=== PATIENT | male | born 1980 ===

== ENCOUNTER 2017-07-20 14:23 | Emergency (ER) | payer OTHER ==
[2017-07-20 14:29] VITALS: BP 112/73; PULSE 81; RESP 18; TEMP 98.2; O2SAT 98
[2017-07-20] MEDS ORDERED: Tetracaine 0.5% Ophth 2 ML BOTTLE OS ONE (14:53)
[2017-07-20] MEDS ORDERED: Tetracaine 0.5% Ophth (OR ONLY) ONE (15:03)
--- NOTE | 2017-07-20 15:16 | C.PDOC ---
History Of Present Illness 37 y/o male presents to ED with complaints of left eye pain. Patient states he was working under ceiling without protective glasses and felt something in the eye. Patient thinks pieces of ceiling could have went in eye. Patient denies vision changes, dizziness, weakness or any other complaints at this time. Time Seen by Provider: 07/20/17 14:36 Chief Complaint (Nursing): Eye Problem History Per: Patient History/Exam Limitations: no limitations Onset/Duration Of Symptoms: Hrs Current Symptoms Are (Timing): Still Present Past Medical History Reviewed: Historical Data, Nursing Documentation, Vital Signs Vital Signs: Last Vital Signs Temp 98.2 F 07/20/17 14:28 Pulse 81 07/20/17 14:28 Resp 18 07/20/17 14:28 BP 112/73 07/20/17 14:28 Pulse Ox 98 07/20/17 15:36 Surgical History: No Surg Hx Family History: States: No Known Family Hx - Social History Hx Alcohol Use: No Hx Substance Use: No - Immunization History Hx Tetanus Toxoid Vaccination: No Hx Influenza Vaccination: No Hx Pneumococcal Vaccination: No Review Of Systems Except As Marked, All Systems Reviewed And Found Negative. Eyes: Positive for: Pain. Negative for: Vision Change Physical Exam - Physical Exam Appears: Non-toxic, No Acute Distress Skin: Normal Color, Warm, Dry, No Rash Head: Atraumatic, Normacephalic Eye(s): bilateral: PERRL, EOMI, left: Other (mild left eye conjuctiva injection. 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 Graf who agreed to see patient in office upon discharge from ED Disposition - Disposition Referrals: Brien Graf MD [Staff Provider] - Disposition: HOME/ ROUTINE Disposition Time: 15:15 Condition: STABLE Additional Instructions: please follow up in the office of specialist. return to er with worsening symptoms or concenrs. 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 - Scribe Statement The provider has reviewed the documentation as recorded by the Riaz Weeks All medical record entries made by the Dinorahibchris were at my direction and personally dictated by me. I have reviewed the chart and agree that the record accurately reflects my personal performance of the history, physical exam, medical decision making, and the department course for this patient. I have also personally directed, reviewed, and agree with the discharge instructions and disposition.
== END 2017-07-20 15:20 | disposition home or self-care (01) ==
LOC: C.ER 14:23
DX: T15.02XA Foreign body in cornea, left eye, initial encounter (principal); X58.XXXA Exposure to other specified factors, initial encounter